=== PATIENT | male | born 2000 | race Caucasian/White ===

== ENCOUNTER 2018-07-05 14:17 | Emergency (ER) | payer SELFPAY ==
[~2018-07-05] VITALS: Ht 185.4 cm; Wt 142.6 kg
[2018-07-05 16:59] VITALS: BP 146/77
== END 2018-07-05 17:05 | disposition home or self-care (01) ==
LOC: EME 14:17
PROC: 0CQ7XZZ Repair Tongue, External Approach (ICD-10-PCS; principal; 2018-07-05)
DX: S01.512A Laceration without foreign body of oral cavity, initial encounter (principal); X58.XXXA Exposure to other specified factors, initial encounter; Y93.61 Activity, american tackle football; Z88.1 Allergy status to other antibiotic agents
CPT/HCPCS: 99281; 99284